=== PATIENT | male | born 1965 | race Caucasian/White ===

== ENCOUNTER 2017-03-15 11:30 | Outpatient (RCR) | payer BC ==
[~2017-03-15 11:30] MED LIST: AMOXICILLIN 8751 TAB PO; NORCO 325 MG-7.1 TAB PO
== END 2017-04-18 07:59 ==
LOC: WSOT 11:30
DX: M60.831 Other myositis, right forearm (principal)

== ENCOUNTER → 2018-07-24 | Outpatient (CLI) | payer BC | LOC: COL.RAD 07:28 | DX: M47.816 Spondylosis without myelopathy or radiculopathy, lumbar region (principal); S46.811A Strain of other muscles, fascia and tendons at shoulder and upper arm level, right arm, initial encounter; M94.8X1 Other specified disorders of cartilage, shoulder ==

== ENCOUNTER → 2018-11-15 | Outpatient (CLI) | payer BC | LOC: COL.RAD 07:28 | DX: R51 Headache (principal) | CPT/HCPCS: Q9967 ==

== ENCOUNTER 2018-12-24 01:46 | Emergency (ER) | payer BC ==
[~2018-12-24] VITALS: Ht 170.2 cm; Wt 68.2 kg
[2018-12-24 01:50] VITALS: TEMP 98
[2018-12-24 03:07] LABS: BASO # 0.1 (0.0-0.2); BASO % 0.9 % (0.0-2.0); EOS # 0.3 (0.0-0.7); EOS % 3.9 % (0-4.0); GRAN # 3.1 (1.4-6.5); GRAN % 44.9 % (42.2-75.2); HEMOGLOBIN 15.4 g/dl (13.5-18.0); MEAN CELL VOLUME 90 fl (80.0-100.0); MEAN CORPUSCULAR HEMOGLOBIN 32 pg (27.0-31.0); MEAN CORPUSCULAR HGB CONC 35 g/dl (33.0-37.0); MEAN PLATELET VOLUME 9.1 fl (7.4-10.4); MONO # 0.5 (0.1-0.6); MONO % 7.2 % (1.7-9.3); PLATELET COUNT 214 K/mm3 (130-400); RED BLOOD COUNT 4.89 M/mm3 (4.20-5.60); REDCELL DISTRIBUTION WIDTH-CV 12.2 % (11.5-14.5)
[2018-12-24 03:11] LABS: PROTHROMBIN TIME 11.6 SECONDS (9.7-12.8)
[2018-12-24 03:15] LABS: ALANINE AMINOTRANSFERASE 38 U/L (21-72); ALBUMIN 4.1 gm/dL (3.5-5.0); ALKALINE PHOSPHATASE 54 U/L (50-136); ANION GAP 9 mmol/L (7-16); AST,SGOT 36 U/L (15-37); BILIRUBIN,TOTAL 0.3 mg/dL (0.0-1.0); BLOOD UREA NITROGEN 16 mg/dL (9-20); CALCIUM 9.3 mg/dL (8.4-10.2); CARBON DIOXIDE 28 mmol/L (22-30); CHLORIDE 103 mmol/L (98-107); CREATININE, serum 0.58 mg/dL (0.66-1.25); GLUCOSE 97 mg/dL (74-106); POTASSIUM 3.9 mmol/L (3.4-5.0); SODIUM 140 mmol/L (137-145); TOTAL PROTEIN 7.2 gm/dL (6.4-8.2)
[2018-12-24 03:26] LABS: TROPONIN-I < 0.012 ng/mL (0.000-0.035)
[2018-12-24 04:53] VITALS: BP 117/84; PULSE 56
== END 2018-12-24 04:53 | disposition home or self-care (01) ==
LOC: COL.ER 01:46
PROVIDERS: Physician Assistant
DX: R51 Headache (principal); W06.XXXA Fall from bed, initial encounter

== ENCOUNTER → 2019-08-26 | Outpatient (CLI) | payer BC | LOC: MHCPAIN 13:19 | DX: G89.29 Other chronic pain (principal); M47.814 Spondylosis without myelopathy or radiculopathy, thoracic region | CPT/HCPCS: G0463 ==

== ENCOUNTER 2019-11-12 15:00 | Outpatient (CLI) | payer BC ==
[~2019-11-12] VITALS: Ht 170.2 cm; Wt 68.9 kg
[2019-11-12 15:27] VITALS: BP 114/72; PULSE 58; TEMP 98.1
[2019-11-12] MEDS ORDERED: MASON NATURAL2000 IU PO (15:38)
[2019-11-12] MEDS ORDERED: B-121000 MCG PO (15:38)
[2019-11-12] MEDS ORDERED: CITRACAL + D CA1 TAB PO (15:39)
[2019-11-12] MEDS ORDERED: KLONOPIN 0.5MG0.5 MG PO (15:40)
[2019-11-12] MEDS ORDERED: DESYREL 100MG100 MG PO (15:40)
[2019-11-12] MEDS ORDERED: PROBIOTIC-MAJOR PO (15:40)
== END 2019-11-12 16:03 | disposition home or self-care (01) ==
LOC: EUO 15:00
DX: M48.54XA Collapsed vertebra, not elsewhere classified, thoracic region, initial encounter for fracture (principal); S22.000A Wedge compression fracture of unspecified thoracic vertebra, initial encounter for closed fracture; D47.2 Monoclonal gammopathy
CPT/HCPCS: J3489

== ENCOUNTER 2020-11-12 14:51 | Outpatient (CLI) | payer BC ==
[~2020-11-12] VITALS: Ht 170.2 cm; Wt 70.4 kg
[~2020-11-12 14:51] MED LIST changes: +B-121000 MCG PO; +CITRACAL + D CA1 TAB PO; +DESYREL 100MG100 MG PO; +KLONOPIN 0.5MG0.5 MG PO; +MASON NATURAL2000 IU PO; +PROBIOTIC-MAJOR PO
[2020-11-12 15:37] VITALS: BP 123/74; PULSE 60; TEMP 98.6
== END 2020-11-12 16:00 | disposition home or self-care (01) ==
LOC: EUO 14:51
DX: D47.2 Monoclonal gammopathy (principal); M80.80XA Other osteoporosis with current pathological fracture, unspecified site, initial encounter for fracture; M48.54XA Collapsed vertebra, not elsewhere classified, thoracic region, initial encounter for fracture; S22.000A Wedge compression fracture of unspecified thoracic vertebra, initial encounter for closed fracture
CPT/HCPCS: J3489

== ENCOUNTER 2022-06-20 20:17 | Emergency (ER) | payer BC ==
[~2022-06-20] VITALS: Ht 170.2 cm; Wt 68.2 kg
[2022-06-20 20:36] VITALS: TEMP 97.7
[2022-06-20 21:55] VITALS: BP 135/94; PULSE 66
== END 2022-06-20 21:54 | disposition home or self-care (01) ==
LOC: COL.ER 20:17
DX: S50.812A Abrasion of left forearm, initial encounter (principal); S70.212A Abrasion, left hip, initial encounter; S70.312A Abrasion, left thigh, initial encounter; S50.311A Abrasion of right elbow, initial encounter; Z23 Encounter for immunization; V10.4XXA Pedal cycle driver injured in collision with pedestrian or animal in traffic accident, initial encounter; Y92.410 Unspecified street and highway as the place of occurrence of the external cause

== ENCOUNTER → 2022-12-22 | Outpatient (CLI) | payer BC | LOC: MHCPAIN 12:45 | DX: M47.896 Other spondylosis, lumbar region (principal); M54.50 Low back pain, unspecified; M54.6 Pain in thoracic spine; M48.54XS Collapsed vertebra, not elsewhere classified, thoracic region, sequela of fracture | CPT/HCPCS: G0463 ==